=== PATIENT | female | born 1990 | race African-American/Black ===

== ENCOUNTER 2019-01-29 21:02 | Outpatient (CLI) | payer MEDICAID ==
[~2019-01-29] VITALS: Ht 154.9 cm; Wt 73.1 kg
[2019-01-29 21:47] LABS: MICROSCOPIC INDICATED
[2019-01-29 21:49] LABS: AMPHETAMINE SCREEN, URINE Negative (Negative); BARBITURATE SCREEN, URINE Negative (Negative); BENZODIAZEPINE SCREEN, URINE Negative (Negative); CANNABINOID SCREEN, URINE Positive (Negative); COCAINE SCREEN, URINE Negative (Negative); METHADONE SCREEN, URINE Negative (Negative); OPIATE SCREEN, URINE Negative (Negative)
== END 2019-01-29 23:34 | disposition home or self-care (01) ==
LOC: LDOP 21:02
PROVIDERS: ATTEND Obstetrics & Gynecology
DX: O62.4 Hypertonic, incoordinate, and prolonged uterine contractions (principal); Z3A.35 35 weeks gestation of pregnancy
CPT/HCPCS: 59025; 80307; 81001; 99211; G0463